=== PATIENT | male | born 1985 | race Asian ===

== ENCOUNTER → 2016-07-19 | Outpatient (CLI) | payer OTHER ==
[~2016-07-19] MED LIST: OPTIRAY 320 IV PRN
--- NOTE | 2016-07-19 13:12 | DIAGNOSTIC IMAGING REPORT ---
CT brain combination HEAD COMBO CLINICAL HISTORY: HYPOPARATHYROIDISM, NAUSEA mental status change TECHNIQUE: Pre and postcontrast transaxial acquisition COMPARISON STUDY: None FINDINGS: Normal density characteristics of the cerebellar as well as cerebral hemispheres. No evidence for abnormal postcontrast enhancement. Ventricular system is midline. IMPRESSION: Normal study Electronically signed by: Flash Condon M.D. 07/19/2016 1:11 PM Dictated Date/Time: 07/19/2016 12:53 PM
== END | disposition home or self-care (01) ==
LOC: C.CTS 12:33
PROVIDERS: ATTEND General Practice
DX: E20.9 Hypoparathyroidism, unspecified (principal); R11.0 Nausea